=== PATIENT | female | born 1960 | race Caucasian/White ===

== ENCOUNTER → 2017-03-15 | Outpatient (CLI) | payer BC ==
--- NOTE | 2017-03-15 09:29 | REPMRS ---
Patient History The patient states she had a clinical breast exam in 02/28 Patient is postmenopausal and has history of cancer in the right breast. Family history of breast cancer in paternal aunt at age 50 or over. Benign excisional biopsy of the right breast. Malignant excisional biopsy of the right breast. Took tamoxifen for 5 years. Digital Woman Screen Mammo: March 15, 2017 - Exam #: [id number] Bilateral CC and MLO view(s) were taken. Technologist: Honey Luu, Technologist Prior study comparison: January 30, 2016, digital woman screen mammo performed at [facility]. March 04, 2014, bilateral bilat screen digital mammo, performed at [facility] ([facility]). FINDINGS: There are scattered fibroglandular densities. There has been no change in the appearance of the mammogram from the prior studies. There is a mild amount of residual fibroglandular tissue which is fairly symmetric. There is no interval development of dominant mass, architectural distortion, or clustered microcalcification suggestive of malignancy. ASSESSMENT: BI-RADS/ACR category 1 mammogram. Negative. Recommendation Routine screening mammogram in 1 year (for women over age 40). This mammogram was interpreted with the aid of an FDA-approved computer-aided dectection system. Electronically Signed By: Jack Arevalo MD 03/15/17 0928
== END ==
LOC: M WHC 07:46
PROVIDERS: ATTEND Nurse Practitioner
DX: Z12.31 Encounter for screening mammogram for malignant neoplasm of breast (principal)

== ENCOUNTER → 2018-11-22 | Outpatient (REF) | payer BC ==
[2018-11-22 12:28] LABS: ALT/SGPT 23 U/L (12-78); BILIRUBIN,TOTAL 0.4 MG/DL (0.2-1.0); BLOOD UREA NITROGEN 22 MG/DL (7-18); CALCIUM LEVEL 9.2 MG/DL (8.8-10.2); CARBON DIOXIDE LEVEL 27 MEQ/L (21-32); CHLORIDE LEVEL 104 MEQ/L (98-107); CHOLESTEROL LEVEL 270 MG/DL (<200); CREATININE FOR GFR 0.61 MG/DL (0.55-1.30); GLOMERULAR FILTRATION RATE > 60.0 (>45); GLUCOSE, FASTING 105 MG/DL (70-100); HDL CHOLESTEROL 45 MG/DL (>40); LDL CHOLESTEROL 189 MG/DL (<100); NON-HDL-C 225 MG/DL; POTASSIUM SERUM 4.3 MEQ/L (3.5-5.1); SODIUM LEVEL 140 MEQ/L (136-145); TOTAL PROTEIN 7.6 GM/DL (6.4-8.2); TRIGLYCERIDES LEVEL 181 MG/DL (<150)
== END ==
LOC: M SFHCCLAY 06:58
PROVIDERS: ATTEND Family Medicine
DX: E78.5 Hyperlipidemia, unspecified (principal)

== ENCOUNTER → 2019-01-08 | Outpatient (REF) | payer BC ==
[2019-01-08 11:47] LABS: ALT/SGPT 30 U/L (12-78); CHOLESTEROL LEVEL 197 MG/DL (<200); CHOLESTEROL RISK RATIO 4.104 (<5); HDL CHOLESTEROL 48 MG/DL (>40); LDL CHOLESTEROL 120 MG/DL (<100); NON-HDL-C 149 MG/DL; TRIGLYCERIDES LEVEL 143 MG/DL (<150)
[2019-01-08 12:38] LABS: HEPATITIS C VIRUS ABY INDEX < 0.0 INDEX (<0.8)
== END ==
LOC: M SFHCCLAY 08:20
PROVIDERS: ATTEND Family Medicine
DX: E78.5 Hyperlipidemia, unspecified (principal); Z11.59 Encounter for screening for other viral diseases

== ENCOUNTER → 2021-03-10 | Outpatient (CLI) | payer BC ==
--- NOTE | 2021-03-10 11:21 | REP ---
INDICATION: JB SCR MAMMO/Z12.31. Patient has prior history of carcinoma the right breast diagnosed at age 42 COMPARISON: Multiple the latest 01/11/2018 TECHNIQUE: Digital screen mammography was carried out bilaterally in the CC and MLO projections using both 2D and 3D modalities and compared to the prior exams. FINDINGS: The breasts are unchanged in size and shape. Once again, scattered dense heterogenous fibroglandular elements are seen bilaterally. In the upper inner quadrant of the right breast there is a danielle asymmetric density. No other suspicious features are seen in either breast. There is no skin thickening or nipple retraction. A few benign calcifications are again seen bilaterally. The Volpara volumetric breast density pattern is b. IMPRESSION: BIRADS/ACR 0 Diagnostic digital magnified spot-compression views right breast recommended for the danielle density as described above along with diagnostic ultrasonography if indicated. This patient's Tyrer-Cuzick lifetime breast cancer risk assessment score is N\A%. This mammogram was interpreted with the aid of an FDA-approved computer-aided detection system. The patient states she had a clinical breast exam in over a year. The patient letter being requested is M0. RECOMMENDATION: As above <Electronically signed by Gildardo Mitchell > 03/10/21 1116
== END ==
LOC: M WHC 09:11
PROVIDERS: ATTEND Family Medicine
DX: Z12.31 Encounter for screening mammogram for malignant neoplasm of breast (principal); Z85.3 Personal history of malignant neoplasm of breast; R92.8 Other abnormal and inconclusive findings on diagnostic imaging of breast

== ENCOUNTER → 2021-03-17 | Outpatient (CLI) | payer BC ==
--- NOTE | 2021-03-17 10:56 | REP ---
INDICATION: ADDITIONAL VIEWS RT BREAST. AND ULTRASONOGRAPHY COMPARISON: Prior mammograms TECHNIQUE: Diagnostic digital magnified spot compression views of the right breast were obtained in the CC and MLO projections over a danielle asymmetric density seen in the upper inner quadrant. Ultrasonography of the abnormality was also obtained FINDINGS: The abnormality seen mammographically on the prior screening examination of 03/10/2021 persists on the diagnostic digital magnified spot compression views. In addition, its margins remain partially obscured. Diagnostic focused ultrasonography over the region of interest shows an abnormal irregular solid lesion consistent with the mammographic abnormality. This measures approximately 1.4 by 0.8 x 1.4 cm. IMPRESSION: BIRADS/ACR category 4 right mammogram and right breast ultrasound. Biopsy is recommended. The patient letter being requested is M4. RECOMMENDATION: As above <Electronically signed by Gildardo Mitchell > 03/17/21 4417
== END ==
LOC: M WHC 08:24
PROVIDERS: ATTEND Family Medicine
DX: R92.8 Other abnormal and inconclusive findings on diagnostic imaging of breast (principal)

== ENCOUNTER → 2021-04-01 | Outpatient (CLI) | payer BC ==
[~2021-04-01] MED LIST: EPIP0.3I2 IM; MULT1TAB8 PO
[2021-04-01 10:36] VITALS: BP 144/82
--- NOTE | 2021-04-01 11:50 | REP ---
INDICATION: R92.8 ABN R BREAST MAMMO/US GUIDED BX/CK CLIP PLACEMENT. COMPARISON: Comparison mammography 03/10/2021. TECHNIQUE: Craniocaudal and mediolateral oblique as well as mediolateral views of the right breast are obtained. FINDINGS: Three views of the right breast today demonstrate some post biopsy edema in the superomedial aspect the right breast. The marker clip is seen in good position at the level where prior mammography showed the mass density. The Volpara volumetric breast density pattern is C. IMPRESSION: Marker clip in good position right breast post biopsy. <Electronically signed by Dick Mendoza > 04/01/21 1361
--- NOTE | 2021-04-01 14:25 | REP ---
INDICATION: R92.8 ABN R BREAST MAMMO/US GUIDED BX. COMPARISON: Comparison breast sonography March 17, 2021.. TECHNIQUE: Sonographic guidance. FINDINGS: Ultrasound guidance is provided to Dr. Mancilla performed ultrasound-guided needle biopsy procedure with marker clip placement. IMPRESSION: Sonographic guidance. <Electronically signed by Dick Mendoza > 04/01/21 2737
--- NOTE | 2021-04-02 09:57 | ROOPDOC ---
[facility] Report Of Operation Report of Operation DATE OF PROCEDURE: 04/01/21 DIAGNOSIS: right breast suspicious lesion PROCEDURE: ultrasound guided biopsy of the right breast suspicious lesion with clip placement SURGEON: Vick Saba BLOOD LOSS: minimal COMPLICATIONS: none Lidocaine 1% LOT [id number] Expiration 02/2024 Sodium Bicarbonate 8.4% LOT [id number] Expiration 12/2021 Hydromark clip LOT [id number] Expiration 10/2023 SHAPE: 4 Bx device: BARD [id number] x10 cm LOT [id number] Expiration 12/2023 Informed consent was obtained. The most common risk and possible complications including bleeding, hematoma, bruising, infection, injury to surrounding structures were explained to the patient and the patient expressed understanding. Patient was placed on the bed in the supine position. Appropriate time out was done stating patients name, date of , and the procedure to be performed. The right breast was prepped and draped in the usual fashion. The ultrasound was used to confirm the location of the lesion in the right breast at 1:00 5 centimeters from the nipple. The lesion is deep at the muscle level but is seems to move independently from the muscle. Plain Lidocaine 1% and 8.4% sodium bicarbonate 10:1 mix was used to anesthetize the skin, the biopsy site and tissues along the anticipated biopsy tract. Small skin incision was made with blade number 11. BARD Marquee 14G cannula with introducer ([id number]) was inserted through the incision and advanced under the ultrasound guidance to position immediately adjacent to the lesion. Next, the introducer was removed and BARD Marquee 14G biopsy device was places in the cannula. Pre-biopsy imaging, and post-biopsy imaging were captured. Five good core biopsies were taken at various levels of the lesion. Specimen was placed in formaldehyde, labeled with appropriate biopsy site and patients name, and sent to pathology for evaluation. Next, the biopsy device was withdrawn and a clip introducer was inserted into the biopsy site via the cannula. SHAPE 4 Hydromark clip was deployed under sonographic guidance. Post-clip placement image was captured. Manual pressure over the biopsy cavity and tract was held after the clip introducer was withdrawn. No bleeding was noted upon removal of the pressure. Post-biopsy mammogram of the right breast was obtained and showed clip in expected position. Postprocedural dressing was placed. Patient tolerated procedure well. Discharge instructions were discussed with the patient and the patient expressed understanding. VICK SABA DO April 02, 2021 09:57
== END ==
LOC: M WHCPRO 06:23
PROVIDERS: ATTEND Surgery
DX: C50.211 Malignant neoplasm of upper-inner quadrant of right female breast (principal)

== ENCOUNTER → 2021-04-08 | Outpatient (REF) | payer BC ==
[2021-04-08 17:55] LABS: BLOOD UREA NITROGEN 21 MG/DL (7-18); CARBON DIOXIDE LEVEL 25 MEQ/L (21-32); CHLORIDE LEVEL 107 MEQ/L (98-107); CREATININE FOR GFR 0.71 MG/DL (0.55-1.30); GLOMERULAR FILTRATION RATE > 60.0 (>45); GLUCOSE, FASTING 94 MG/DL (70-100); POTASSIUM SERUM 4.5 MEQ/L (3.5-5.1); SODIUM LEVEL 140 MEQ/L (136-145)
== END ==
LOC: M PLALAB 15:10
PROVIDERS: ATTEND Surgery
DX: C50.911 Malignant neoplasm of unspecified site of right female breast (principal)

== ENCOUNTER → 2021-04-17 | Outpatient (CLI) | payer BC ==
[~2021-04-17] MED LIST changes: +PROHANCE 279.3MG/ML 15ML VIAL As Ordered ONE; +PROHANCE 279.3MG/ML 5ML VIAL As Ordered ONE
--- NOTE | 2021-04-20 09:12 | REP ---
INDICATION: INVASIVE DUCTAL CARCINOMA RT BREAST. COMPARISON: Mammogram 03/10/2021 as well as other prior exams. TECHNIQUE: Three Melissa MRI imaging was performed with a dedicated breast coil. Axial, coronal, and sagittal T1 and T2 weighted scans were obtained with and without fat saturation in the usual fashion. The study includes dynamically acquired post gadolinium-enhanced imaging with image subtraction. Maximum intensity projection and multi planar reformation imaging is included as well. This study is interpreted with the aid of Voradius, an FDA approved computer aided detection (CAD) software program, on a dedicated breast MRI workstation. The gadolinium enhancement dose is 16 mL of intravenous ProHance. FINDINGS: There is mild symmetrical fibroglandular tissue bilaterally. There is no axillary adenopathy. There is no significant cystic change in either breast. There is mild to moderate background parenchymal enhancement bilaterally. In the superomedial right breast there is an irregular enhancing mass measuring approximately 1.7 cm in maximum diameter. There is a biopsy clip just inferior to the mass. There is no other suspicious enhancing mass or morphologic abnormality. There are gallstones in the gallbladder. IMPRESSION: BI-RADS category 6 known right breast cancer. Irregular enhancing mass in the upper inner right breast measures 1.7 cm in maximum diameter, with a biopsy clip just inferior to the mass. No other evidence of suspicious enhancing mass or morphologic abnormality. No significant adenopathy. <Electronically signed by Jack Arevalo > 04/20/21 0944
== END ==
LOC: M RAD 14:20
PROVIDERS: ATTEND Surgery
DX: C50.911 Malignant neoplasm of unspecified site of right female breast (principal); K80.20 Calculus of gallbladder without cholecystitis without obstruction
CPT/HCPCS: A9576; C8908

== ENCOUNTER → 2021-05-19 | Outpatient (CLI) | payer BC ==
[~2021-05-19] MED LIST changes: -PROHANCE 279.3MG/ML 15ML VIAL As Ordered ONE; -PROHANCE 279.3MG/ML 5ML VIAL As Ordered ONE
--- NOTE | 2021-05-19 13:08 | REP ---
INDICATION: ABN IMAGING. COMPARISON: None. TECHNIQUE/RADIOTRACER AND DOSE: Following the intravenous administration of 22.0mCi technetium 99 M MDP, patient's whole-body is imaged in multiple projections. FINDINGS: There is a focus of increased uptake in the right mandible. This is most likely related to the patient's dentition. There is no compelling scintigraphic evidence of metastatic bone lesion in the axial or appendicular skeleton. Renal and bladder activity are seen. IMPRESSION: No compelling scintigraphic evidence of osseous metastases. A single focus of increased uptake in the right mandible most likely is related to the patient's dentition. <Electronically signed by Jack Arevalo > 05/19/21 [id number]
== END ==
LOC: M RAD 08:39
PROVIDERS: ATTEND Surgery
DX: C50.211 Malignant neoplasm of upper-inner quadrant of right female breast (principal)
CPT/HCPCS: 78306; A9503

== ENCOUNTER → 2021-05-20 | Outpatient (CLI) | payer BC ==
--- NOTE | 2021-05-20 08:03 | REP ---
INDICATION: E78.5, HYPERLIPIDEMIA COMPARISON: None. TECHNIQUE: PA and lateral. FINDINGS: The mediastinum and cardiac silhouette are normal. The lung barton are clear and without acute consolidation, effusion, or pneumothorax. The skeletal structures are intact and normal. IMPRESSION: No acute cardiopulmonary process. <Electronically signed by Mo Hurley > 05/20/21 0800
== END ==
LOC: M CLY 07:36
PROVIDERS: ATTEND Family Medicine
DX: E78.5 Hyperlipidemia, unspecified (principal)

== ENCOUNTER → 2021-05-20 | Outpatient (REF) | payer BC ==
[2021-05-20 11:52] LABS: MEAN CORPUSCULAR HEMOGLOBIN 27.9 pg (27.0-33.0); MEAN CORPUSCULAR HGB CONC 31.1 g/dl (32.0-36.5); MEAN CORPUSCULAR VOLUME 89.6 fl (80.0-96.0); PLATELET COUNT, AUTOMATED 314 10^3/uL (150-450); RED BLOOD COUNT 5.02 10^6/uL (4.00-5.40)
[2021-05-20 12:31] LABS: ALBUMIN 3.9 GM/DL (3.2-5.2); ALT/SGPT 23 U/L (12-78); BILIRUBIN,TOTAL 0.4 MG/DL (0.2-1.0); BLOOD UREA NITROGEN 17 MG/DL (7-18); CALCIUM LEVEL 9.4 MG/DL (8.8-10.2); CARBON DIOXIDE LEVEL 28 MEQ/L (21-32); CHLORIDE LEVEL 105 MEQ/L (98-107); CREATININE FOR GFR 0.64 MG/DL (0.55-1.30); GLOMERULAR FILTRATION RATE > 60.0 (>45); GLUCOSE, FASTING 100 MG/DL (70-100); POTASSIUM SERUM 4.6 MEQ/L (3.5-5.1); SODIUM LEVEL 140 MEQ/L (136-145); TOTAL PROTEIN 7.5 GM/DL (6.4-8.2)
== END ==
LOC: M SFHCCLAY 07:27
PROVIDERS: ATTEND Family Medicine
DX: E78.5 Hyperlipidemia, unspecified (principal); C50.911 Malignant neoplasm of unspecified site of right female breast

== ENCOUNTER → 2021-05-21 | Outpatient (CLI) | payer BC | LOC: M LABSMTC 13:15 | PROVIDERS: ATTEND Anesthesiology | DX: Z01.812 Encounter for preprocedural laboratory examination (principal); Z20.822 Contact with and (suspected) exposure to COVID-19 ==

== ENCOUNTER → 2021-05-22 | Outpatient (CLI) | payer BC ==
[~2021-05-22] MED LIST changes: +ISOVUE-370 76% 100ML VIAL As Ordered ONE
--- NOTE | 2021-05-22 14:28 | REP ---
INDICATION: BREAST CA. COMPARISON: None TECHNIQUE: Axial contrast-enhanced images from the lung bases to the pubic symphysis using 100 cc Isovue 370 intravenous contrast material. Precontrast and delayed images of the abdomen obtained along with coronal and sagittal reformations. This CT examination was performed using the following dose reduction techniques: Automated exposure control, adjustment of mA and/or kv according to the patient's size, and the use of iterative reconstruction technique. FINDINGS: Liver, spleen, pancreas, bilateral adrenal glands and kidneys are normal. Cholelithiasis noted without acute cholecystitis. The enteric system including stomach, small, and large bowel appears normal. No evidence for obstruction or acute inflammatory process. Normal terminal ileum and appendix are identified in the right lower quadrant. Colonic diverticulosis without acute diverticulitis. Pelvis demonstrates normal bladder and presumed myomatous changes to the uterus. No ascites. No free air. No intraperitoneal or retroperitoneal adenopathy. Abdominal aorta and vasculature appear normal. Musculoskeletal structures are intact and without acute osseous abnormality. IMPRESSION: 1. No acute abdominopelvic pathology appreciated. 2. No evidence for metastatic disease. 3. Cholelithiasis. 4. Diverticulosis. 5. Suspected myomatous changes to the uterus may warrant pelvic ultrasound follow-up. <Electronically signed by Mo Hurley > 05/22/21 5530
--- NOTE | 2021-05-22 14:36 | REP ---
INDICATION: BREAST CA COMPARISON: None. TECHNIQUE: Standard helical technique after the administration of 100 cc Isovue 370 intravenously. FINDINGS: There is no mediastinal or hilar adenopathy. There are no pleural or pericardial effusions. Bone window technique throughout the examination shows the osseous structures to be within normal limits. Evaluation of the lung barton shows 2 left upper lobe ground-glass nodules 1 measuring 9 mm and the other 6 mm. There is lung field hypoexpansion. There is cylindrical bronchiectasis with possible early verrucoid changes particularly in the lower lobe regions. IMPRESSION: 1. Two left upper lobe ground-glass nodules as described above. According to the revised Fleischner society criteria these represent lung rads category 3 lesions and for which a six-month follow-up chest CT is recommended. 2. Bronchiectasis as described above. <Electronically signed by Gildardo Mitchell > 05/22/21 [id number]
== END ==
LOC: M RAD 13:34
PROVIDERS: ATTEND Surgery
DX: C50.211 Malignant neoplasm of upper-inner quadrant of right female breast (principal); Z85.3 Personal history of malignant neoplasm of breast

== ENCOUNTER 2021-05-26 06:33 | Day surgery (SDC) | payer BC ==
[~2021-05-26] VITALS: Ht 149.9 cm; Wt 84.4 kg
[~2021-05-26 06:33] MED LIST changes: -ISOVUE-370 76% 100ML VIAL As Ordered ONE; +LR 1,000 ML IV ONE; +ceFAZolin SOD 2 GM in IV 1 EA IV ONE
[2021-05-26] MEDS ORDERED: HEPARIN SOD (PORCINE) 5000UNITS/ML 1ML VIAL/SYRINGE SQ ONE (07:05)
[2021-05-26] MEDS ORDERED: ceFAZolin SOD 2 GM in IV 1 EA IV ONE (07:05)
[2021-05-26] MEDS ORDERED: SCOPOLAMINE 1MG TRANSDERMAL PATCH TOP ONE (07:35)
[2021-05-26] MEDS ORDERED: MIDAZOLAM INJ 2MG/2ML VIAL (J2250 PER 1MG) As Ordered ONE (08:01)
[2021-05-26] MEDS ORDERED: fentaNYL 100 MCG/2 ML INJECTION (J3010) As Ordered ONE ×3 (08:02→11:56)
[2021-05-26] MEDS ORDERED: LIDOCAINE 2% 100MG/5ML SDV (FOR ANES.) As Ordered ONE (08:03)
[2021-05-26] MEDS ORDERED: BUPIVACAINE HCL 0.25% 30ML VIAL As Ordered ONE (09:10)
[2021-05-26] MEDS ORDERED: LIDOCAINE 1% SDV 30ML VIAL As Ordered ONE (09:10)
[2021-05-26] MEDS ORDERED: METHYLENE BLUE 0.5% (5MG/ML) 10 ML AMP (PROVAYBLUE) As Ordered ONE (09:10)
[2021-05-26] MEDS ORDERED: METOCLOPRAMIDE INJ 10MG/2ML VIAL (J2765 PER 1) As Ordered ONE (09:48)
[2021-05-26] MEDS ORDERED: dexameTHASONE 4 MG/ML 1ML VIAL (J1100 PER 1MG) As Ordered ONE (09:48)
[2021-05-26] MEDS ORDERED: KETOROLAC 60MG 2ML VIAL As Ordered ONE (09:48)
[2021-05-26] MEDS ORDERED: ONDANSETRON 4MG/2ML VIAL As Ordered ONE (09:48)
[2021-05-26] MEDS ORDERED: propofoL 200 MG/20 ML VIAL As Ordered ONE (09:48)
[2021-05-26] MEDS ORDERED: ACETAMINOPHEN 1000MG 100ML IV BTL (OFIRMEV) (J0131 PER 10MG) As Ordered ONE (09:49)
[2021-05-26] MEDS ORDERED: ePHEDrine SULFATE 25 MG/5 ML(5MG/ML) SYRINGE As Ordered ONE (09:53)
[2021-05-26] MEDS ORDERED: PHENYLephrine 500MCG 5ML (100MCG/ML) SYRINGE As Ordered ONE ×2 (10:02→10:47)
[2021-05-26] MEDS ORDERED: PHENYLEPHRINE 10MG/ML 1ML VIAL (J2370 PER 1) As Ordered ONE (11:29)
[2021-05-26] MEDS ORDERED: MEPERIDINE INJ 25 MG/ML VIAL (J2175) IV PRN (12:20)
[2021-05-26] MEDS ORDERED: oxyCODONE 5MG TAB PO PRN (12:20)
[2021-05-26] MEDS ORDERED: ONDANSETRON 4MG/2ML VIAL IV PRN (12:20)
[2021-05-26] MEDS ORDERED: LR 1,000 ML IV SCH (12:20)
[2021-05-26] MEDS ORDERED: fentaNYL 100 MCG/2 ML INJECTION (J3010) IV PRN (12:20)
[2021-05-26] MEDS ORDERED: ROXI1TAB2 PO (12:34)
[2021-05-26 14:05] VITALS: BP 127/68
--- NOTE | 2021-05-26 14:17 | REP ---
INDICATION: RIGHT BREAST CANCER. COMPARISON: Comparison mammography April 01, 2021.. TECHNIQUE: Specimen radiograph. Four views including photograph so. FINDINGS: Two specimen radiographs of the excised specimen demonstrates a Kopan's localizer wire right adjacent to the previously placed needle biopsy marker clip within the specimen. IMPRESSION: Specimen radiography demonstrates the previously placed needle biopsy marker clip within the specimen along side the Kopan's localizer wire. <Electronically signed by Dick Mendoza > 05/26/21 [id number]
--- NOTE | 2021-05-26 17:16 | REP ---
INDICATION: right breast. COMPARISON: None. TECHNIQUE: The procedure was performed under the direct supervision of Dr. Mendoza. The images were reviewed with Dr. Mendoza. Using topical anesthetic and sterile technique 1.014 mCi of technetium 99 filtered sulfur colloid was injected subdermally in 8 fractionated periareolar injections. Images obtained 1 hour after injection show marino uptake in the axillary region on the right. FINDINGS: There is marino uptake in the axillary region on the right. IMPRESSION: Right breast lymphoscintigraphy. There is marino uptake in the axillary region on the right. <Electronically signed by Miguel Starkey > 05/26/21 1656 <Electronically signed by Dick Mendoza > 05/26/21 3928
--- NOTE | 2021-05-26 20:09 | ROOPDOC ---
[facility] Report Of Operation Report of Operation DATE OF PROCEDURE: 05/26/21 PREPROCEDURE DIAGNOSES: Right breast cancer POSTPROCEDURE DIAGNOSES: same PROCEDURE PERFORMED: Right breast lumpectomy with intraop wire placement and right sentinel lymph node biopsy, intraop interpretation of specimen with sonography and radiography with interpretation SURGEON: Dr Vick Saba ANESTHESIA: general ESTIMATED BLOOD LOSS: Approximately 5 mL. COMPLICATIONS: none FINDINGS: hypoechoic mass and hydromark clip seen in the right breast lumpectomy specimen with intraop US, Hydromark clip and wire seen on the intraop radiography, one sentinel LN identified DESCRIPTION OF PROCEDURE: INDICATIONS: Ms. Mendoza is a 61-year-old woman, with PMHx of R breast cancer (DCIS) who was found to have a suspicious right breast mass on screening mammogram. This was evaluated with US and sonographic correlate was found. US guided biopsy of the mass came back as IDC, ER +, VT +, HER-2 -, grade3. She underwent systemic staging to rule out breast cancer recurrence and systemic spread. This was negative for distal metastasis. She opted for breast conservative surgery with sentinel lymph node biopsy on the right. She was medically cleared for surgery by her primary care doctor. Risks and possible complications of surgical procedure including bleeding, infection and injury to surrounding structures were explained to the patient and she wished to proceed. Consent was signed. My initials were placed on the operative site. Subcutaneous injection of 5000 units of heparin was done in Preop. The injection of radioactive tracer was done in radiology department preoperatively. Lymphoscintigraphy imaging was reviewed in preop. There was mild uptake in the right axilla which was confirmed with Neoprobe in the Preop area. DETAILS: Patient was taken to the operating room and placed on the operating room table. A sign in was called stating patients name, date of and the procedure to be done. Preoperative antibiotics were infused. Smooth induction of general anesthesia was done. Patients hands were extended on arm rests. Care was taken not to over extend the arms. Pillow was placed under the knees and a foam was placed under the heels. Sequential compression devices were placed and assured to function correctly. Procedure was started with right breast intraop wire localization. Appropriate time out was done and patients name, date of , and the procedure to be done were confirmed. Right breast was cleaned by me. Intraoperative ultrasound was used to confirm location of the Hydromark clip and associated cancer. Locati on of the clip and cancer was marked on the skin as well. 21 G Kopans Breast Lesion Localization Needle was used to place 25 cm wire through the clip and the lesion. The end of the wire was passed a centimeter deep. The images were captured confirming adequate placement of the localizing wire. Light Armored Reconnaissance Officer assisted with the wire placement. Next, patients right breast and axilla were prepped and draped in the usual fashion. Care was taken not to displace the wire. Appropriate time out was done again prior second part of the procedure. Patients name, date of , and the procedure to be done were confirmed. Procedure was started with sentinel lymph node biopsy. Neoprobe was used to locate area of maximum intensity of the signal. Local anesthetic using 1% lidocaine and 0.25 % Marcaine 50/50 mix was injected. An incision was made with scalpel number 15 at the inferior aspect of axillary hair line in the right axilla where the maximum signal was identified. The sharp and blunt dissection was continued through the subcutaneous adipose tissue. Clavipectoral fascia was opened. Neoprobe was used to guide the dissection. A sentinel lymph node was identified and excised. The ex-vivo 10 second count was 4143. The specimen was labeled with patients name and sent to pathology. There was associated tissue near this lymph node which was also excised as it was thought to be possible associated lymph node, however, on ex-vivo palpation likely this is only an adipose tissue. This was sent as a specimen and it was called right axillary content. No additional suspicious lymph nodes with high radioactive signal were identified. The 10 second count of the background was 79. Adequate hemostasis was assured. Additional local anesthetic was injected into surrounding tissues. Wound was irrigated. Clavipectoral fascia was closed with 3-0 Vicryl interrupted suture. Dermal layer was closed at the end of the case with 3-0 Monocryl and skin was closed with 4-0 Monocryl. Surgical glue was applied to the incision at the end of the procedure. Next, our attention was turned toward the right breast. Local anesthetic using 1% lidocaine and 0.25 % Marcaine 50/50 mix was injected at the site of planned right upper periareolar incision. The incision was made with the scalpel. Subcutaneous skin flaps were raised and the guide wire was carefully pulled into the wound. Dissection was carries along the wire until the previously marked on the skin area of target lesion location was encountered. At this point, wider excision of the tissue surrounding the wire was done. The Hydromark clip was identified in the tissue with intraoperative hockey stick ultrasound probe. The end of the wire was identified with palpation. The lumpectomy specimen was carefully removed from the breast keeping its proper orientation and moved to the back table where margins were marked with the surgical inking kit following the standard colors recommendations. The specimen measured 5.5 cm x 4.5 cm. Specimen was then placed on the grid and placed in [facility] Specimen Imaging System. The image revealed the wire and the Hydromark in the specimen. The specimen was labeled with patients name and right/left lumpectomy and sent to pathology. Upon examination of the margins of the specimen using the intraop radiography and with the intraop ultrasound of the specimen, I noted that the hydromark clip is relatively close to the medial margin on intraop sono and the hypoechoic mass is relatively close to posterior margin on sono. Decision was made to excise additional posterior and medial margin as those are the margins at highest risk of being positive. All new margins, defined as margin farthest away from lumpectomy cavity, were marked with black ink. Each margin was sent as a separate specimen with appropriate labeling. Wound was thoroughly irrigated. Adequate hemostasis was assured. Additional local anesthetic was injected into surrounding tissues. Clips were placed to doreen the cavity. space was approximated with 2-0 Vicryl mobilizing surrounding tissue to minimize contour deformity. The dermis was closed with 3-0 Vicryl and skin was closed with 4-0 Monocryl. Surgical glue was placed over the incision. Patient emerged from the anesthesia without any problems. Fluffs were placed over the operative site and patients chest was wrapped snuggly in the JATINDER wrap. Sponge and instrument counts were done and were correct. Patient tolerated procedure well and was taken to recovery unit in stable condition. VICK SABA DO May 26, 2021 20:08
== END 2021-05-26 14:05 | disposition home or self-care (01) ==
LOC: M SDC 06:33
PROVIDERS: ATTEND Surgery
DX: D05.11 Intraductal carcinoma in situ of right breast (principal); Z17.1 Estrogen receptor negative status [ER-]; Z80.3 Family history of malignant neoplasm of breast; E78.5 Hyperlipidemia, unspecified; F41.9 Anxiety disorder, unspecified; Z91.030 Bee allergy status
CPT/HCPCS: 19125; 36415; 38525; 76942; 78195; 86850; 86900; 86901; 88305; 88307; A9541; J0131; J0690; J1100; J1644; J1885; J2250; J2370; J2405; J2765; J3010

== ENCOUNTER → 2021-06-16 | Outpatient (CLI) | payer BC ==
[~2021-06-16] MED LIST changes: +ATOR1TAB21 PO; +DEXA4TA PO; -LR 1,000 ML IV ONE; +ROXI1TAB2 PO; -ceFAZolin SOD 2 GM in IV 1 EA IV ONE
--- NOTE | 2021-06-16 12:57 | RADONC.CN ---
Radiation Oncology Hx/Consult Radiation Oncology Consult Date of Service: Jun 16, 2021 Pt Identifier Ana Maria Mendoza is a 61 year old female with a history of right breast DCIS 2003 and now right breast cancer pT1cN0(sn)M0 ER/UT+ HER2- Grade 3 IDC. She is s/p lumpectomy and SLNB with Dr. Mancilla on 05/26/21. Oncotype score was 37 and she is to receive adjuvant chemotherapy. She is seen today to discuss the plan for adjuvant RT. Diagnosis/Treatment History Oncologic History History of abnormal mammograms dating back to 2003 showing right breast lesions. She had previous excision of some ADH and a small focus of DCIS with Dr. Shi. She was on tamoxifen through 2008, did not have RT. 03/10/21 Screening mammogram with right breast abnormality. 03/17/21 Diagnostic mammogram and US with 1.4 cm lesion 04/01/21 Biopsy with IDC ER/UT+ HER2- Grade 3 04/17/21 MRI without regional disease 05/26/21 Lumpectomy and SLNB pT1cN0(sn)M0 margins negative Oncotype score 37 Breast history: Menses @ 14 Menopause @ 49 OCP use 5 years No HRT No IVF Interval History Feeling overwhelmed today, mother on Tuesday. Hasn't slept. Very emotional time for her. Post-operatively no complaints. No swelling in arm, no impaired ROM. Past Medical History: Anxiety HPL Family History: No family history of cancer Social History: Never smoker Never drinker Allergies / Meds Allergies: Coded Allergies: bee venom protein (honey bee) (Verified Allergy, Unknown, 05/21/21) Uncoded Allergies: SOME SKIN CREAMS AND LOTIONS (Allergy, Unknown, 07/15/04) Home Meds Active Scripts Dexamethasone (Dexamethasone) 4 Mg Tablet, 2 TAB PO ASDIRECTED, #25 TAB Take 2 tablets (8 mg) twice daily by mouth for 3 days starting 1 day prior to chemotherapy. Prov:NAPOLEON VAZ MD FACP 06/16/21 Reported Medications Atorvastatin Calcium (Atorvastatin Calcium) 20 Mg Tablet, 1 TAB PO DAILY 06/16/21 Epinephrine (Epipen 2-Berny) 0.3 Mg/0.3 Ml Auto.injct, 1 SYRINGE IM ONCE for 1 Day, #1 PKT 04/01/21 Discontinued Scripts Oxycodone HCl (Roxicodone) 5 Mg Tablet, 5 MG PO Q6HP PRN for pain MDD 4 Tablet(s) for 3 Days, #10 TAB Prov:LETICIA MANCILLAIESZNASREEN Anderson 05/26/21 Review of Systems Constitutional: Reports: Fatigue; Denies: Chills, Night Sweats, Weakness Eyes: Denies: Pain Skin: Denies: Rash Pulmonary: Denies: Dyspnea, Cough Cardiovascular: Denies: Chest Pain Gastrointestinal: Reports: Nausea (Recent days due to mother's passing); Denies: Abdominal Pain Musculoskeletal: Denies: Neck pain, Arm pain, Back pain Neurological: Denies: Weakness, Numbness Psych: Reports: Anxiety, Other Psych (Adjustment) Vital Signs Wt 186 lbs T 97.4 P 104 RR 18 BP 140/76 O2 99% Pain 0 Fatigue 0 General Exam: Positive: Alert, Cooperative, No Acute Distress Eye Exam: Positive: PERRLA, EOMI ENT EXAM: Positive: Mucous membr. moist/pink, Pharynx Normal Neck Exam: Negative: Thyromegaly, Lymphadenopathy Chest Exam: Positive: Normal air movement; Negative: Rales, Rhonchi, Wheezing Heart Exam: Positive: Rate Normal, Regular Rhythm Breast Exam: Positive: Symmetric Bilaterally, Skin Changes (Healing right periareolar incsion with dermabond remaining, healing right axillary incision); Negative: Lumps or Masses (Minimal palpable seroma right central breast), Nip ple Retraction, Nipple Discharge Abdomen Exam: Positive: Soft Extremity Exam: Positive: Other (ROM intact BL UE); Negative: Edema Neuro Exam: Positive: Normal Gait, Normal Speech Psych Exam: Positive: Mental status NL Diagnostic and Laboratory Diagnostic Review Radiologic images, relevant labs and pathology reports were personally reviewed and discussed with Ms. Mendoza. Assessment and Plan Impression Ms. Mendoza is a 61 year old female with a history of right breast DCIS 2003 and now right breast cancer pT1cN0(sn)M0 ER/UT+ HER2- Grade 3 IDC. She is s/p lumpectomy and SLNB with Dr. Mancilla on 05/26/21. Oncotype score was 37 and she is to receive adjuvant chemotherapy. She is seen today to discuss the plan for adjuvant RT. Stage Right central breast cancer pT1cN0(sn)M0 ER/UT+ HER2- Grade 3 IDC Stage IA Oncotype 37 Performance Status ECOG 0 Plan We had an extensive discussion with Ms. Mendoza regarding the diagnosis at hand and available therapeutic options. First, I offered my condolences at the loss of her mother recently. She was te arful through the visit at times, but expressed that she wanted to continue with discussion of her treatment. Because of high oncotype score she will receive 4 cycles of adjuvant chemotherapy which will delay adjuvant RT ~ 3 months or more. Thus we agreed to follow up in ~ 3 months time to review my recommendations and logistics of RT. For treatment with RT I recommended adjuvant APBI versus the alternative of WBI. We discussed the data supporting APBI and the advantage of less irradiated volume and generally less side effects. She meets acceptability criteria per the [facility] guidelines. She was enthusiastic about APBI. For specific APBI regimens, I offered 40 Gy in 15 fractions per IMPORT LOW versus 26 Gy in 5 fractions per FAST FORWARD. We discussed that the IMPORT LOW data is more mature but that initial comparisons show equivalent oncologic outcomes in the whole breast setting. I am comfortable offering either. She prefers the 15 fraction regimen. We discussed the logistics of receiving radiation therapy in detail including the need for a 1-time planning session. This can occur ~ 2 weeks post completion of chemotherapy We reviewed the side effects of RT including fatigue, skin reaction, and late fibrosis. After discussing the risks, benefits and alternatives to radiation therapy, Ms. Mendoza was amenable to pursuing radiotherapy. All questions were answered to the patient's satisfaction. We instructed the patient that if there were any questions,concerns or changes in clinical status in the interim to contact us. Recommendations Follow up in 3 months after completion of chemotherapy Adjuvant APBI 40 Gy in 15 fractions Billing Statement Total time of [50] minutes was spent preparing for the visit [3], obtaining HPI [7], examining the patient [3], reviewing diagnostic tests [4], discussing management options [20], coordinating care [3], and writing this note [10]. EDINSON PINEDA MD Jun 16, 2021 12:56
== END ==
LOC: M ONCR 07:40
PROVIDERS: ATTEND General Practice
DX: D05.11 Intraductal carcinoma in situ of right breast (principal); Z91.030 Bee allergy status

== ENCOUNTER → 2021-07-23 | Outpatient (CLI) | payer BC ==
[~2021-07-23] MED LIST changes: +LIDO1CRE42 TOP; +LIDOCAINE 1% MDV 20ML VIAL As Ordered ONE; +MIDAZOLAM INJ 2MG/2ML VIAL (J2250 PER 1MG) As Ordered ONE; +NS 1,000 ML IV SCH; +ONDA8TAB10 PO; +PROC10TA4 PO; +ceFAZolin 1GM VIAL (J0690 PER 500MG) As Ordered ONE; +ceFAZolin SOD 1 GM in D5W MINI-BAG PLUS 50 ML IV SCH; +ceFAZolin SOD 2 GM in IV 1 EA IV ONE; +diphenhydrAMINE 50MG/ML VIAL (J1200) As Ordered ONE; +fentaNYL 100 MCG/2 ML INJECTION (J3010) As Ordered ONE
--- NOTE | 2021-07-23 15:22 | IRPON ---
IR Postoperative Note Date Of Procedure: Jul 23, 2021 Time Of Procedure: 16:00 IR Postoperative Note IR Ultrasound and fluoroscopy guided port placement IR Ultrasound of the neck. IR Moderate sedation. Clinical indication: Right-sided breast cancer. Physician: Dr. Quinones. Procedure: The patient was advised of the benefits, risks, and alternatives of the procedure and informed consent was obtained. A time-out was performed with verification of the patient's name, MRN, site of procedure and type of procedure to be performed. The patient was positioned in the supine position on the angiographic table. The site was prepped and draped in the usual sterile fashion. Moderate sedation was performed by the physician including the presence of an independent trained RN who assisted and monitored the patient's level of consciousness and physiologic status. Following the administration of fentanyl and Versed , the physician spent 45 minutes of continuous face to face time with the patient. Ultrasound of the neck reveals a patent and compressible left internal jugular vein. A cellophane wrapping examiner radiograph reveals no gross abnormality. The neck and anterior chest wall were anesthetized with lidocaine. The left internal jugular vein was accessed using a microintroducer needle under ultrasound guidance, via a lateral approach. An 018 wire was advanced into the superior vena cava, the needle was removed and a microsheath was placed. An Amplatz wire was then passed into the inferior vena cava. An incision at the internal jugular vein access site and anterior chest wall were made using a scalpel. An incision was made at the anterior chest wall. A small pocket was created using a combination of blunt and sharp dissection. A tunneling device was then used to pass the catheter from the pocket to the neck puncture site. An 8- Sami Angio [employer] Smart power port was then positioned in the pocket. The catheter was then measured and cut. The introducer sheath was exchanged for a peel-away sheath. The catheter was passed through the peel-away sheath into the internal jugular vein and the peel-away sheath was removed. The port tip was positioned at the cavoatrial junction. The port was then accessed with a Mcgill needle. The port flushes and aspirates well. The puncture site in the neck was closed. The chest wall incision was then closed with 2-0 Vicryl and 4-0 Monocryl. Glue and Steri- Strips were applied. A sterile dressing was then applied. The patient tolerated the procedure well and was returned to the PRU in stable condition. Estimated blood loss: <5 ml. Complications: None. Conclusion: 1. Successful placement of an 8-Sami Angio dynamics Smart power port via the Left internal jugular vein. The port is ready for immediate use. 2. Patient to follow up in IR clinic in 2 weeks. Thank you for this referral. HUMZA QUINONES MD Jul 23, 2021 15:22
[2021-07-23 16:00] VITALS: BP 157/74
== END ==
LOC: M IRPRO 11:36
PROVIDERS: ATTEND Internal Medicine Medical Oncology
DX: C50.911 Malignant neoplasm of unspecified site of right female breast (principal)
CPT/HCPCS: 36561; 99152; 99153; C1769; C1788; C1894; J0690; J1642; J1644; J2250; J3010

== ENCOUNTER → 2021-08-06 | Outpatient (CLI) | payer BC ==
[~2021-08-06] MED LIST changes: -LIDOCAINE 1% MDV 20ML VIAL As Ordered ONE; -MIDAZOLAM INJ 2MG/2ML VIAL (J2250 PER 1MG) As Ordered ONE; -NS 1,000 ML IV SCH; -ceFAZolin 1GM VIAL (J0690 PER 500MG) As Ordered ONE; -ceFAZolin SOD 1 GM in D5W MINI-BAG PLUS 50 ML IV SCH; -ceFAZolin SOD 2 GM in IV 1 EA IV ONE; -diphenhydrAMINE 50MG/ML VIAL (J1200) As Ordered ONE; -fentaNYL 100 MCG/2 ML INJECTION (J3010) As Ordered ONE
--- NOTE | 2021-08-06 09:13 | REP ---
INDICATION: N85.9 UTERINE DISORDER. COMPARISON: Comparison is made with CT study of the pelvis May 22, 2021. TECHNIQUE: Transabdominal scanning. The patient declined transvaginal imaging. FINDINGS: Uterine dimensions are normal at 8.1 x 3.9 x 5.5 cm. Endometrial echo is 1.0 cm thick and centrally placed. No free fluid is seen in the cul-de-sac. Visualized bladder larry are smooth. There is a hyperechoic area in the right uterus consistent with a fibroid measuring 2.9 x 2.8 x 2.6 cm. Patient declined transvaginal imaging. The right ovary has dimensions of 1.8 x 1.0 x 1.1 cm. The left ovary dimensions are normal as well at 1.6 x 1.1 x 1.8 cm. IMPRESSION: Small uterine fibroid, 2.9 cm in diameter. Otherwise negative. <Electronically signed by Dick Mendoza > 08/06/21 [id number]
== END ==
LOC: M WHC 08:36
PROVIDERS: ATTEND Surgery
DX: N85.9 Noninflammatory disorder of uterus, unspecified (principal); D25.9 Leiomyoma of uterus, unspecified

== ENCOUNTER → 2021-08-11 | Outpatient (POV) | payer BC ==
[~2021-08-11] VITALS: Ht 149.9 cm; Wt 81.8 kg
[2021-08-11 12:30] VITALS: BP 134/72
--- NOTE | 2021-08-13 11:40 | IRPN ---
[facility] IR Progress Note IR Progress Note DATE: Aug 11, 2021 FOLLOW-UP: Status post port placement. Patient reports doing well. No fevers, chills or pain at site. ON EXAMINATION: Port site appears to be healing well. No redness, fluctuance or discharge. IMPRESSION: Doing well status post port placement. No further follow-up scheduled unless initiated by patient and/or referring provider. Thank you for this referral Allergies Coded Allergies: bee venom protein (honey bee) (Verified Allergy, Unknown, 05/21/21) Uncoded Allergies: SOME SKIN CREAMS AND LOTIONS (Allergy, Unknown, 07/15/04) VS,Fishbone, I+O VS, Fishbone, I+O Vital Signs Date Time Temp Pulse Resp B/P (MAP) Pulse Ox O2 Delivery O2 Flow Rate FiO2 08/11/21 12:30 98.9 110 20 134/72 (92) 96 HUMZA DARBY MD Aug 13, 2021 11:40
== END ==
LOC: M IRPOV 11:59
PROVIDERS: ATTEND Radiology Diagnostic Radiology
DX: Z45.2 Encounter for adjustment and management of vascular access device (principal)

== ENCOUNTER → 2021-10-23 | Outpatient (CLI) | payer BC ==
[~2021-10-23] MED LIST changes: +ARIM1TAB5 PO; +ONDA-84 PO; -ONDA8TAB10 PO; -PROC10TA4 PO; +PROC10TA5 PO
== END ==
LOC: M ONCR 16:17
PROVIDERS: ATTEND General Practice
DX: C50.911 Malignant neoplasm of unspecified site of right female breast (principal); Z92.21 Personal history of antineoplastic chemotherapy

== ENCOUNTER 2021-11-04 09:13 | Outpatient (RCR) | payer BC ==
[~2021-11-04 09:13] MED LIST changes: -ONDA-84 PO; +ONDA8TAB10 PO; +PROC10TA4 PO; -PROC10TA5 PO
== END 2021-11-13 ==
LOC: M ONCR 09:13
PROVIDERS: ATTEND General Practice
DX: C50.111 Malignant neoplasm of central portion of right female breast (principal)

== ENCOUNTER → 2021-12-14 | Outpatient (RCR) | payer BC ==
[~2021-12-14] MED LIST changes: +ONDA-84 PO; -ONDA8TAB10 PO; -PROC10TA4 PO; +PROC10TA5 PO
== END ==
LOC: M ONCR 11-19 07:53
PROVIDERS: ATTEND General Practice
DX: C50.111 Malignant neoplasm of central portion of right female breast (principal)

== ENCOUNTER 2021-12-15 11:18 | Outpatient (RCR) | payer BC | END 2022-01-11 | LOC: M ONCR 11:18 | PROVIDERS: ATTEND General Practice | DX: C50.111 Malignant neoplasm of central portion of right female breast (principal) ==

== ENCOUNTER → 2021-12-18 | Outpatient (CLI) | payer BC ==
[2021-12-18 12:25] LABS: IMMUNOGLOBULIN E 8.1 IU/ML (<100); IMMUNOGLOBULIN G 696 MG/DL (681-1648); IMMUNOGLOBULIN M 79.8 MG/DL (40-230); RHEUMATOID FACTOR QUANT < 10.0 IU/ML (<15.0)
== END ==
LOC: M PLAIMG 10:01
PROVIDERS: ATTEND Internal Medicine Pulmonary Disease
DX: R91.8 Other nonspecific abnormal finding of lung field (principal)

== ENCOUNTER → 2022-03-08 | Outpatient (CLI) | payer BC | LOC: M WHC 07:57 | PROVIDERS: ATTEND Internal Medicine Medical Oncology | DX: Z85.3 Personal history of malignant neoplasm of breast (principal); Z79.899 Other long term (current) drug therapy | CPT/HCPCS: 77066; G0279 ==

== ENCOUNTER → 2022-05-28 | Outpatient (CLI) | payer BC | LOC: M WHC 07:02 | PROVIDERS: ATTEND Internal Medicine Medical Oncology | DX: C50.919 Malignant neoplasm of unspecified site of unspecified female breast (principal); N64.4 Mastodynia; M85.89 Other specified disorders of bone density and structure, multiple sites ==

== ENCOUNTER → 2022-06-17 | Outpatient (CLI) | payer BC ==
[~2022-06-17] MED LIST changes: +DICL1GEL3 TOP
== END ==
LOC: M ONCR 08:59
PROVIDERS: ATTEND General Practice
DX: Z08 Encounter for follow-up examination after completed treatment for malignant neoplasm (principal); Z85.3 Personal history of malignant neoplasm of breast; Z92.21 Personal history of antineoplastic chemotherapy; Z92.23 Personal history of estrogen therapy; Z92.3 Personal history of irradiation; Z91.030 Bee allergy status; Z79.811 Long term (current) use of aromatase inhibitors; Z79.899 Other long term (current) drug therapy

== ENCOUNTER → 2023-01-18 | Outpatient (REF) | payer BC | LOC: M SFHCWAGY 13:17 | PROVIDERS: ATTEND Obstetrics & Gynecology | DX: Z12.4 Encounter for screening for malignant neoplasm of cervix (principal) | CPT/HCPCS: 87624; G0123 ==

== ENCOUNTER → 2023-03-08 | Outpatient (CLI) | payer BC | LOC: M WHC 10:31 | PROVIDERS: ATTEND Nurse Practitioner Women's Health | DX: C50.911 Malignant neoplasm of unspecified site of right female breast (principal) | CPT/HCPCS: 77066; G0279 ==

== ENCOUNTER → 2023-10-03 | Outpatient (CLI) | payer BC ==
[~2023-10-03] MED LIST changes: +DICL100G10 TOP; -DICL1GEL3 TOP; -LIDO1CRE42 TOP; +LIDO30CR18 TOP; +PROHANCE 279.3MG/ML 15ML VIAL As Ordered ONE
== END ==
LOC: M RAD 09:54
PROVIDERS: ATTEND Internal Medicine Hematology & Oncology
DX: C50.919 Malignant neoplasm of unspecified site of unspecified female breast (principal); N64.4 Mastodynia
CPT/HCPCS: A9576; C8908

== ENCOUNTER → 2024-03-19 | Outpatient (CLI) | payer BC ==
[~2024-03-19] MED LIST changes: -PROHANCE 279.3MG/ML 15ML VIAL As Ordered ONE
== END ==
LOC: M WHC 12:48
PROVIDERS: ATTEND Internal Medicine Medical Oncology
DX: Z85.3 Personal history of malignant neoplasm of breast (principal); M85.80 Other specified disorders of bone density and structure, unspecified site; R92.323 Mammographic fibroglandular density, bilateral breasts
CPT/HCPCS: 77066; G0279

== ENCOUNTER → 2024-06-07 | Outpatient (CLI) | payer BC | LOC: M WHC 09:49 | PROVIDERS: ATTEND Internal Medicine Medical Oncology | DX: M85.89 Other specified disorders of bone density and structure, multiple sites (principal); Z85.3 Personal history of malignant neoplasm of breast ==

== ENCOUNTER → 2025-03-21 | Outpatient (CLI) | payer MEDICARE ==
[~2025-03-21] MED LIST changes: +VITA500045 PO
== END ==
LOC: M WHC 08:01
PROVIDERS: ATTEND Nurse Practitioner Women's Health
DX: Z12.31 Encounter for screening mammogram for malignant neoplasm of breast (principal); Z85.3 Personal history of malignant neoplasm of breast; R92.313 Mammographic fatty tissue density, bilateral breasts; Z98.890 Other specified postprocedural states